=== PATIENT | female | born 1990 | race Caucasian/White ===

== ENCOUNTER 2018-10-15 20:51 | Emergency (ER) | payer OTHER ==
[2018-10-15 21:07] VITALS: BP 113/74
--- NOTE | 2018-10-15 21:32 | UC ---
Respiratory Complaint HPI - HPI Summary HPI Summary: Patient is a 28 year old female, who present today to the urgent care with cough for past 2 months. She reports she has has REACH as primary. Takes Suboxone everyday. There is associated chest pain due to cough but denies any shortness of breath. Denied any nausea or vomiting, diarrhea or constipation.. - History of Current Complaint Chief Complaint: UCRespiratory Stated Complaint: URI Time Seen by Provider: 10/15/18 21:14 Hx Obtained From: Patient Hx Last Menstrual Period: 4 weeks Pain Intensity: 3 - Allergies/Home Medications Allergies/Adverse Reactions: Allergies Allergy/AdvReac Type Severity Reaction Status Date / Time No Known Allergies Allergy Verified 10/15/18 21:07 Home Medications: Home Medications Buprenorphine HCl/Naloxone HCl [Suboxone 12 mg-3 mg Sl Film] 2 each SL DAILY [History Confirmed 10/15/18] Gabapentin CAP(*) [Neurontin 300 CAP(*)] 600 mg PO BID 10/15/18 [History Confirmed 10/15/18] PMH/Surg Hx/FS Hx/Imm Hx - Additional Past Medical History Additional PMH: Past Medical History : Recovering substance abuse on Suboxone Past Surgical History: No Past History of Procedure Family History : non contributory Social History : Occasional alcohol, current every day smoker, no current drug use. Previously Healthy: Yes - Surgical History Surgical History: None - Family History Known Family History: Positive: Non-Contributory - Social History Alcohol Use: Occasionally Substance Use Type: None Smoking Status (MU): Heavy Every Day Tobacco Smoker Household Exposure Type: Cigarettes Review of Systems All Other Systems Reviewed And Are Negative: Yes Constitutional: Positive: Fever Skin: Positive: Negative Eyes: Positive: Negative ENT: Positive: Negative Respiratory: Positive: Cough - Productive of greenish to grayish sputum. Negative: Shortness Of Breath Cardiovascular: Positive: Chest Pain - Secondary to cough Gastrointestinal: Positive: Negative Genitourinary: Positive: Negative Motor: Positive: Negative Neurovascular: Positive: Negative Musculoskeletal: Positive: Negative Neurological: Positive: Negative Psychological: Positive: Negative Is Patient Immunocompromised?: No Physical Exam - Summary Physical Exam Summary: Physical Exam: Const: Appears well. No signs of apparent distress present. Alert and oriented x 3. Musculo: Walks with a normal gait. Head/Face: Atraumatic, normocephalic on inspection. Eyes: EOMI and PERRLA in both eyes. Conjunctivae clear. No discharge noted ENT: Hearing normal Respiratory: Respirations are unlabored. Air entry cold bilaterally, rhonchi noted bilaterally throughout the lungs CVS: Regular rate and Rhythm, S1S2 normal , no murmurs identified. Extremities: Peripheral circulation is grossly normal. Pulses 2+ Abdomen : Soft non tender , nondistended , Bowel sounds present . No guarding , rebound tenderness or rigidity noted. Skin: No lesions or rash located on the upper extremities or on the lower extremities. Neuro: Cranial nerves II to XII intact, motor and sensory intact. DTR Intact bilaterally. Mood is normal. Affect is normal. Triage Information Reviewed: Yes Vital Signs: Initial Vital Signs Temp 99.6 F 10/15/18 20:58 Pulse 78 10/15/18 20:58 Resp 16 10/15/18 20:58 BP 113/74 10/15/18 20:58 Pulse Ox 99 10/15/18 20:58 Vital Signs Reviewed: Yes Respiratory Course/Dx - Course Course Of Treatment: During the visit today, we discussed the findings ,of bronchitis and further plan to treat it with antibiotic. I will prescribe the medication to the pharmacy . Patient expressed understanding . - Differential Dx/Diagnosis Provider Diagnosis: Bronchitis Discharge - Sign-Out/Discharge Documenting (check all that apply): Patient Departure All imaging exams completed and their final reports reviewed: No Studies - Discharge Plan Condition: Stable Disposition: HOME Prescriptions: Azithromycin TAB* [Zithromax TAB (Z-AMELIA) 250 mg #6 tabs] 250 mg PO DAILY 4 Days #4 tab Patient Education Materials: Acute Bronchitis (ED) Forms: *Work Release Referrals: No Primary Care Phys,NOPCP [Primary Care Provider] - Additional Instructions: Please start taking the medication as prescribed to the pharmacy . Follow up with your primary care doctor in 1 week You can return to work on Tuesday, note provided Return to Urgent care / ER if symptoms get worse. - Billing Disposition and Condition Condition: STABLE Disposition: Home
[2018-10-15] MEDS ORDERED: Azithromycin TAB* 250 MG PO ONE (21:38)
== END 2018-10-15 21:52 | disposition home or self-care (01) ==
LOC: UCEAST 20:51
DX: J40 Bronchitis, not specified as acute or chronic (principal); F17.210 Nicotine dependence, cigarettes, uncomplicated
CPT/HCPCS: 99212; A9270-GY; G0463

== ENCOUNTER 2022-02-18 21:00 | Inpatient (IN) ==
[2022-02-18 21:52] LABS: ABS Eosinophils 0.2 10^3/ul (0-0.6); ABS Lymphocytes 1.1 10^3/ul (1.0-4.8); ABS Monocytes 0.6 10^3/ul (0-0.8); ABS Neutrophils 9.3 10^3/ul (1.5-7.7); Eosinophil % 1.9 %; Hematocrit 34 % (35-47); Hemoglobin 11.3 g/dL (12.0-16.0); Lymphocyte % 9.6 %; Mean Corpuscular HGB Conc 33 g/dL (31-36); Mean Corpuscular Hemoglobin 29 pg (27-31); Mean Corpuscular Volume 87 fL (80-97); Mean Platelet Volume 7.1 fL (7.4-10.4); Platelet Count 326 10^3/uL (150-450); Red Blood Count 3.91 10^6 /uL (3.70-4.87); Red Cell Distribution Width 12 % (10-15); White Blood Count 11.2 10^3/uL (3.5-10.8)
[2022-02-18 22:17] LABS: Albumin 3.9 g/dL (3.2-5.2); Albumin/Globulin Ratio 1.4 (1-3); Calcium 9.2 mg/dL (8.6-10.3); Globulin 2.7 g/dL (2-4); Potassium 3.9 mmol/L (3.5-5.0); Total Bilirubin 0.3 mg/dL (0.2-1.0); Total Protein 6.6 g/dL (6.4-8.9); eGFR CKD-EPI 125.3 (>60)
[2022-02-19] MEDS ORDERED: Clindamycin 600 MG/D5W BAG 600 MG/50 ML BAG IV ONE (02:39)
[2022-02-19] MEDS ORDERED: Piperacillin/Tazobac ADVAN 3.375 GM in NS 0.9% 100 ml BAG 100 ML IV ONE (02:39)
[2022-02-19] MEDS ORDERED: Iohexol 350 (CONTRAST) 500 ML MDV IV ONE (02:51)
[2022-02-19] MEDS ORDERED: Tetan/Diph/Pertus SYR(Tdap) 0.5 ML SYR(BOOSTRIX) use SYR contains LATEX IM ONE (03:00)
[2022-02-19] MEDS ORDERED: Vancomycin 1,250 MG in NS 0.9% 250 ml 250 ML IVPB SCH (03:00)
[2022-02-19] MEDS ORDERED: Vancomycin 1,250 MG in NS 0.9% 250 ml 250 ML IVPB ONE ×2 (04:00→10:00)
[2022-02-19] MEDS ORDERED: Cefepime 1 GM in Dextrose 1 GM/50 ML BAG IV SCH (10:00)
[2022-02-19] MEDS ORDERED: Buprenorp/Nalox 8-2 MG FILM SL FILM SCH ×2 (11:00→21:00)
[2022-02-19] MEDS ORDERED: Acetaminophen IV 1 GM/100ML 1,000 MG/100 ML BAG IV ONE (12:30)
[2022-02-19] MEDS ORDERED: Lidocaine 1% VIAL 10 MG/ML VIAL 30 ML INJ ONE (13:10)
[2022-02-19] MEDS ORDERED: Vancomycin per Pharmacy 1 EA NOTE FOLLOW UP PRN (13:28)
[2022-02-19] MEDS ORDERED: Vancomycin 1000 MG in NS 0.9% 250 ML IVPB SCH (14:00)
[2022-02-19] MEDS: Cefepime 1 GM in Dextrose 1 GM/50 ML BAG IV SCH (17:42)
[2022-02-19] MEDS: Vancomycin 1000 MG in NS 0.9% 250 ML IVPB SCH (18:36)
[2022-02-19] MEDS ORDERED: Buprenorp/Nalox 8-2 MG FILM SL FILM PRN (19:01)
[2022-02-19] MEDS: Buprenorp/Nalox 8-2 MG FILM SL FILM SCH (20:36)
[2022-02-20] MEDS: Vancomycin 1000 MG in NS 0.9% 250 ML IVPB SCH ×3 (02:28→19:55)
[2022-02-20 06:07] LABS: ABS Basophils 0.1 10^3/ul (0-0.2); ABS Eosinophils 0.6 10^3/ul (0-0.6); ABS Lymphocytes 1.9 10^3/ul (1.0-4.8); ABS Monocytes 0.6 10^3/ul (0-0.8); ABS Neutrophils 3.7 10^3/ul (1.5-7.7); Eosinophil % 8.2 %; Hematocrit 34 % (35-47); Hemoglobin 11.6 g/dL (12.0-16.0); Lymphocyte % 28.2 %; Mean Corpuscular HGB Conc 34 g/dL (31-36); Mean Corpuscular Hemoglobin 30 pg (27-31); Mean Corpuscular Volume 87 fL (80-97); Mean Platelet Volume 7.1 fL (7.4-10.4); Nucleated Red Blood Cells % 0.1; Platelet Count 339 10^3/uL (150-450); Red Blood Count 3.93 10^6 /uL (3.70-4.87); Red Cell Distribution Width 12 % (10-15); White Blood Count 6.9 10^3/uL (3.5-10.8)
[2022-02-20] MEDS: Cefepime 1 GM in Dextrose 1 GM/50 ML BAG IV SCH ×2 (06:07→17:57)
[2022-02-20 06:17] LABS: C Reactive Protein 60.12 mg/L (<8.01); Calcium 9.2 mg/dL (8.6-10.3); Potassium 4.9 mmol/L (3.5-5.0); eGFR CKD-EPI 124.3 (>60)
[2022-02-20] MEDS: Buprenorp/Nalox 8-2 MG FILM SL FILM SCH ×2 (10:25→19:58)
[2022-02-20] MEDS ORDERED: Vancomycin Trough Check NOTE FOLLOW UP ONE ×2 (13:30→18:00)
[2022-02-21] MEDS ORDERED: Nicotine GUM 4MG FRUIT FLAVOR PO PRN (01:15)
[2022-02-21] MEDS: Vancomycin 1000 MG in NS 0.9% 250 ML IVPB SCH ×3 (02:25→18:53)
[2022-02-21] MEDS: Cefepime 1 GM in Dextrose 1 GM/50 ML BAG IV SCH ×2 (05:55→18:16)
[2022-02-21 06:16] LABS: ABS Eosinophils 0.6 10^3/ul (0-0.6); ABS Lymphocytes 1.9 10^3/ul (1.0-4.8); ABS Monocytes 0.7 10^3/ul (0-0.8); ABS Neutrophils 2.4 10^3/ul (1.5-7.7); Eosinophil % 10.2 %; Hematocrit 35 % (35-47); Hemoglobin 11.9 g/dL (12.0-16.0); Lymphocyte % 33.8 %; Mean Corpuscular HGB Conc 34 g/dL (31-36); Mean Corpuscular Hemoglobin 30 pg (27-31); Mean Corpuscular Volume 87 fL (80-97); Mean Platelet Volume 6.9 fL (7.4-10.4); Platelet Count 371 10^3/uL (150-450); Red Blood Count 3.98 10^6 /uL (3.70-4.87); Red Cell Distribution Width 12 % (10-15); White Blood Count 5.5 10^3/uL (3.5-10.8)
[2022-02-21 06:25] LABS: Calcium 9.2 mg/dL (8.6-10.3); Potassium 4.5 mmol/L (3.5-5.0); eGFR CKD-EPI 119.7 (>60)
[2022-02-21] MEDS: Buprenorp/Nalox 8-2 MG FILM SL FILM SCH ×2 (10:01→20:56)
[2022-02-22] MEDS: Vancomycin 1000 MG in NS 0.9% 250 ML IVPB SCH ×2 (02:27→11:47)
[2022-02-22] MEDS: Cefepime 1 GM in Dextrose 1 GM/50 ML BAG IV SCH (05:49)
[2022-02-22] MEDS ORDERED: Vancomycin Trough Check NOTE FOLLOW UP ONE (10:00)
[2022-02-22 10:51] LABS: C Reactive Protein 12.53 mg/L (<8.01); Vancomycin Trough 11.8 mcg/mL; eGFR CKD-EPI 122.3 (>60)
[2022-02-22 11:19] VITALS: BP 132/79
[2022-02-22] MEDS: Buprenorp/Nalox 8-2 MG FILM SL FILM SCH (11:40)
== END 2022-02-22 17:15 | disposition home or self-care (01) | DRG 383 ==
LOC: ED 21:00 → EDHOLD 02-19 09:35 → SUATTDRO 02-19 09:35 → SSU 02-19 12:52
PROVIDERS: ADMIT Internal Medicine; ATTEND Internal Medicine